=== PATIENT | female | born 1995 | race African-American/Black ===

== ENCOUNTER → 2016-06-13 | Outpatient (REF) | payer BC | LOC: M SFHCLERA 17:21 | PROVIDERS: ATTEND Nurse Practitioner Family | DX: N89.8 Other specified noninflammatory disorders of vagina (principal); R30.0 Dysuria ==

== ENCOUNTER → 2016-07-31 | Outpatient (REF) | payer BC | LOC: M SFHCLERA 14:35 | PROVIDERS: ATTEND Nurse Practitioner Family | DX: Z11.3 Encounter for screening for infections with a predominantly sexual mode of transmission (principal) ==